=== PATIENT | female | born 1950 | race Caucasian/White ===

== ENCOUNTER 2016-07-25 10:05 | Outpatient (CLI) | payer BC, MEDICARE ==
[2016-07-25 11:41] LABS: ALT (SGPT) 36 U/L (0-55); AST (SGOT) 23 U/L (5-34); Alkaline Phosphatase 70 U/L (40-150); Anion Gap 16 mmol/L (10-20); BUN (Urea Nitrogen) 19 mg/dL (9.8-20.1); Bilirubin, Total 0.6 mg/dL (0.2-1.2); Calc. Creatinine Clearance 0 mL/min (70-130); Calcium 9.4 mg/dL (7.8-10.44); Carbon Dioxide 24 mmol/L (23-31); Chloride 108 mmol/L (98-107); Estimated GFR-MDRD 69; Globulin 2.6 g/dL (2.4-3.5); LDL Cholesterol, Calculated 106 mg/dL; Protein, Total 7.2 g/dL (5.8-8.1)
[2016-07-25 11:48] LABS: Hemoglobin A1c 6.2 % (4.0-6.0)
[2016-07-25 12:11] LABS: #Basophils 0.1 thou/uL (0.0-0.2); #Eosinphils 0.2 thou/uL (0.0-0.7); #Lymphocytes 1.5 thou/uL (1.20-3.40); #Monocytes 0.3 thou/uL (0.11-0.59); %Basophils 1.1 % (0.0-1.0); %Eosinophils 3.4 % (0.0-10.0); %Lymphocytes 30.1 % (21.0-51.0); %Monocytes 5.9 % (0.0-10.0); Hematocrit 42.5 % (36.0-47.0); Mean Platelet Volume 10.7 fL (7.4-10.4); Red Blood Cell (RBC) Count 4.51 mill/uL (4.20-5.40); White Blood Cell (WBC) Count 5.1 thou/uL (4.8-10.8)
== END 2016-07-25 10:06 ==
LOC: NAVSJIPCSP 10:05
PROVIDERS: ATTEND Internal Medicine
DX: E11.9 Type 2 diabetes mellitus without complications (principal); I10 Essential (primary) hypertension; E78.2 Mixed hyperlipidemia; F32.9 Major depressive disorder, single episode, unspecified; Z79.899 Other long term (current) drug therapy
CPT/HCPCS: 36415; 80053; 80061; 83036; 84443; 85025

== ENCOUNTER 2016-12-12 08:05 | Outpatient (CLI) | payer MEDICARE ==
[2016-12-12 12:46] LABS: Hemoglobin A1c 5.9 % (4.0-6.0)
[2016-12-12 12:56] LABS: Cardiac Risk 4.2 (Less than 4.5)
== END 2016-12-12 08:06 | disposition home or self-care (01) ==
LOC: NAVSJIPCSP 08:05
PROVIDERS: ATTEND Internal Medicine
DX: E78.2 Mixed hyperlipidemia (principal); E11.9 Type 2 diabetes mellitus without complications; I10 Essential (primary) hypertension
CPT/HCPCS: 36415; 80061; 83036

== ENCOUNTER 2019-11-17 14:07 | Outpatient (CLI) | payer MEDICARE ==
--- NOTE | 2019-11-17 14:36 | RAD ---
Left hand 3 views HISTORY: Pain. FINDINGS: Mild diffuse joint space narrowing. Mild osteophytosis and lateral subluxation at the first carpometacarpal joint. No acute fracture, dislocation, or aggressive osseous erosions. IMPRESSION : Mild osteoarthritic changes. No acute osseous abnormalities are demonstrated.
== END 2019-11-17 14:08 | disposition home or self-care (01) ==
LOC: NAV RAD 14:07
PROVIDERS: ATTEND Internal Medicine
DX: M79.642 Pain in left hand (principal); M19.042 Primary osteoarthritis, left hand

== ENCOUNTER 2020-01-10 16:25 | Emergency (ER) | payer MEDICARE, OTHER ==
[2020-01-12 13:46] LABS: SARS-CoV-2 MS2 Positive; SARS-CoV-2 N Gene Negative; SARS-CoV-2 S Gene Negative; SARS-CoV-2 orf1ab Negative
== END 2020-01-10 17:15 | disposition home or self-care (01) ==
LOC: NAV ERS 16:25
DX: Z20.828 Contact with and (suspected) exposure to other viral communicable diseases (principal); E78.5 Hyperlipidemia, unspecified; E78.00 Pure hypercholesterolemia, unspecified; I10 Essential (primary) hypertension; F17.210 Nicotine dependence, cigarettes, uncomplicated; Z79.899 Other long term (current) drug therapy
CPT/HCPCS: 87635; 99283; U0003

== ENCOUNTER 2021-10-15 10:10 | Emergency (ER) | payer OTHER, MEDICARE ==
[2021-10-15] MEDS ORDERED: Bacitracin 1 PK ONE (11:36)
== END 2021-10-15 11:41 | disposition home or self-care (01) ==
LOC: NAV ERS 10:10
DX: S13.9XXA Sprain of joints and ligaments of unspecified parts of neck, initial encounter (principal); S00.83XA Contusion of other part of head, initial encounter; I10 Essential (primary) hypertension; E11.9 Type 2 diabetes mellitus without complications; E78.5 Hyperlipidemia, unspecified; E78.00 Pure hypercholesterolemia, unspecified; G47.30 Sleep apnea, unspecified; F17.210 Nicotine dependence, cigarettes, uncomplicated; W01.198A Fall on same level from slipping, tripping and stumbling with subsequent striking against other object, initial encounter; Z79.84 Long term (current) use of oral hypoglycemic drugs; Z79.899 Other long term (current) drug therapy
CPT/HCPCS: 70450; 72050